=== PATIENT | female | born 1945 | race Caucasian/White ===

== ENCOUNTER → 2019-02-16 | Outpatient (CLI) | payer OTHER ==
--- NOTE | 2019-02-17 08:40 | EKG ---
[address] [address] ELECTROCARDIOGRAM REPORT Name: EZE PATEL [id number] ������������������ Admission: 02/16/19 ������������������ Attend Phys: Tomás Ford MD Discharge: ������������������ Date of : 49 Report #: [id number] ����������������������������������������������������������������� [id number] THIS REPORT FOR: //name// [facility] Test Date: 2019-02-16 Test Time: 11:25:01 Pat Name: EZE PATEL Department: Room: Gender: F [employer] Operator: Shilo BORJAS : 1945 Requested By: Tomás Ford Order Number: [id number] MD: Zelalem Curtis Measurements Intervals [place] Rate: 97 P: 67 UT: 131 QRS: 34 QRSD: 101 T: 12 QT: 375 QTc: 477 Interpretive Statements Sinus rhythm Normal tracing No previous ECG available for comparison Electronically Signed On 02-17-2019 8:39:53 CDT by Zelalem Curtis [email or web address] ��������������������������������������������� <ELECTRONICALLY SIGNED> ���������������������������������������� By: Zelalem Curtis MD, [facility] ��������������������������������������������� 02/17/19 0839 1125 1125 Zelalem Curtis MD, FACC /EPI
== END ==
LOC: CV 10:47
DX: E04.2 Nontoxic multinodular goiter (principal)